=== PATIENT | male | born 1970 | race Caucasian/White ===

== ENCOUNTER 2016-11-29 21:26 | Emergency (ER) | payer MEDICARE ==
[~2016-11-29] VITALS: Ht 182.8 cm; Wt 88.5 kg
[~2016-11-29 21:26] MED LIST: ACULAR 3 ML3 M1 OP; AMOXICILLIN500 MG PO; ATARAX50 MG PO; BAYER ASPIRIN C81 MG PO; BENTYL10 MG PO; CHLORDIAZEPOXIDE5 M1 PO; CIPRO500 MG PO; DARVOCET N 1001 TAB PO; FISH OIL1000 MG PO; FLAGYL500 MG PO; FLEXERIL10 MG PO; FLEXERIL5 MG PO; FLOMAX0.4 MG PO; GOOD SENSE ALLE10 MG PO; IBU-8800 MG PO; KEFLEX500 MG PO; KENALOG0.1% TP; LIDEX0.05% T; LIPITOR40 MG PO; LISINOPRIL AND1 TAB PO; LISINOPRIL5 MG PO; MEDROL DOSEPAK4 MG PO; MELOXICAM7.5 MG PO; MOTRIN800 MG PO; Motrin,Rufen800 MG PO; NKHM; NORCO 5-325 TA1 EACH PO; OMEPRAZOLE40 MG PO; OXY IR5 MG PO; PERCOCET 325 MG1 TA2 PO; PREDNICOT20 MG PO; SEPTRA DS 800 M1 TAB PO; SIMVASTATIN10 MG PO; SINGULAIR10 MG PO; TESSALON PERLE100 M1 PO; THERA TABS1 TAB PO; TOBREX 5 ML5 ML OPH; TRAMADOL HCL50 MG PO; TRAZODONE HCL50 MG PO; ULTRAM50 MG PO; VICODIN 500 MG-1 TAB PO; ZITHROMAX Z-PA250 MG PO; ZOCOR10 MG PO; ZOFRAN4 MG PO
[2016-11-29] MEDS ORDERED: BACTRIM DS 8001 TA1 PO (21:41)
== END 2016-11-29 21:45 | disposition home or self-care (01) ==
LOC: ED 21:26
DX: L02.413 Cutaneous abscess of right upper limb (principal); Z88.6 Allergy status to analgesic agent; Z79.899 Other long term (current) drug therapy; Z79.82 Long term (current) use of aspirin

== ENCOUNTER 2017-11-15 20:46 | Emergency (ER) | payer MEDICARE ==
[~2017-11-15] VITALS: Ht 182.8 cm; Wt 90.7 kg
[~2017-11-15 20:46] MED LIST changes: +BACTRIM DS 8001 TA1 PO
[2017-11-15] MEDS ORDERED: Motrin,Rufen800 MG PO (20:54)
[2017-11-15] MEDS ORDERED: SEPTDS PO (20:54)
== END 2017-11-15 21:02 | disposition home or self-care (01) ==
LOC: ED 20:46
DX: L08.9 Local infection of the skin and subcutaneous tissue, unspecified (principal); Z79.899 Other long term (current) drug therapy; Z79.82 Long term (current) use of aspirin; Z86.14 Personal history of Methicillin resistant Staphylococcus aureus infection

== ENCOUNTER 2018-04-10 19:23 | Emergency (ER) | payer MEDICARE ==
[~2018-04-10] VITALS: Ht 182.8 cm; Wt 88.5 kg
[~2018-04-10 19:23] MED LIST changes: +SEPTDS PO
[2018-04-10 19:52] LABS: BASO % 0.7 % (0.0-1.0); EOS # 0.1 10*3/uL (0.0-0.4); EOS % 2.2 % (1.0-4.0); HEMATOCRIT 43.8 % (42.0-52.0); HEMOGLOBIN 15.5 g/dl (14.0-18.0); LYMPH # 1.7 10*3/uL (1.3-4.4); LYMPH % 32.5 % (27.0-41.0); MEAN CELL VOLUME 91.3 fl (80.0-94.0); MEAN CORPUSCULAR HGB 32.3 pg (27.0-31.0); MEAN CORPUSCULAR HGB CONC 35.4 g/dl (33.0-37.0); MEAN PLATELET VOLUME 9.7 fl (9.6-12.3); MONO # 0.5 10*3/uL (0.1-1.0); MONO % 8.8 % (3.0-9.0); NEUT % 55.6 % (47.0-73.0); PLATELET COUNT AUTOMATED 260 10*3/uL (130-400); RED CELL DISTRI WIDTH 12.1 % (0-14.5); WHITE BLOOD COUNT 5.4 10*3/uL (4.8-10.8)
[2018-04-10 19:56] LABS: BILIRUBIN NEGATIVE (NEGATIVE); BLOOD NEGATIVE (NEGATIVE); CLARITY CLEAR (CLEAR); COLOR YELLOW (YELLOW); GLUCOSE NEGATIVE (NEGATIVE); KETONE NEGATIVE (NEGATIVE); LEUKO ESTERASE NEGATIVE (NEGATIVE); NITRITE NEGATIVE (NEGATIVE); SPECIFIC GRAVITY <= 1.005 (1.005-1.030); UROBILINOGEN 0.2 E.U./dl (0.2-1.0)
[2018-04-10 20:05] LABS: BACTERIA TRACE; EPITHELIAL CELLS 0-2; RBC 0-2 rbc/hpf (0-2); WBC 0-2 wbc/hpf (0-5)
[2018-04-10 20:14] LABS: ALBUMIN 3.8 gm/dl (3.1-4.5); ALKALINE PHOSPHATASE 102 U/L (45-117); BUN 6 mg/dl (7-24); CHLORIDE 106 mmol/L (98-107); CREATININE 1.01 mg/dL (0.70-1.30); POTASSIUM 3.4 mmol/L (3.5-5.1); SGOT/AST 36 IU/L (3-35); SGPT/ALT 49 U/L (12-78); SODIUM 140 mmol/L (136-145); TOTAL PROTEIN 7.6 gm/dL (6.4-8.2)
[2018-04-10 20:16] LABS: LIPASE 177 U/L (73-393)
[2018-04-10] MEDS ORDERED: CYCLOBENZAPRINE10 MG PO (21:30)
[2018-04-10] MEDS ORDERED: IBU800 MG PO (21:30)
== END 2018-04-10 21:36 | disposition home or self-care (01) ==
LOC: ED 19:23
PROVIDERS: Student in an Organized Health Care Education/Training Program
DX: R10.31 Right lower quadrant pain (principal); R30.9 Painful micturition, unspecified; Z87.442 Personal history of urinary calculi; Z79.899 Other long term (current) drug therapy; Z79.82 Long term (current) use of aspirin

== ENCOUNTER 2018-10-06 22:15 | Emergency (ER) | payer MEDICARE ==
[~2018-10-06] VITALS: Ht 182.8 cm; Wt 95.3 kg
[~2018-10-06 22:15] MED LIST changes: +CYCLOBENZAPRINE10 MG PO; +IBU800 MG PO
[2018-10-06] MEDS ORDERED: ACULAR 0.5%3 ML OPH (23:48)
== END 2018-10-06 23:54 | disposition home or self-care (01) ==
LOC: ED 22:15
DX: H16.133 Photokeratitis, bilateral (principal); Z79.899 Other long term (current) drug therapy; Z79.82 Long term (current) use of aspirin; Z90.49 Acquired absence of other specified parts of digestive tract; Z87.442 Personal history of urinary calculi; W89.8XXA Exposure to other man-made visible and ultraviolet light, initial encounter; Y93.89 Activity, other specified; Y92.89 Other specified places as the place of occurrence of the external cause; Y99.8 Other external cause status

== ENCOUNTER 2019-06-08 18:09 | Emergency (ER) | payer MEDICARE ==
[~2019-06-08] VITALS: Wt 88.5 kg
[~2019-06-08 18:09] MED LIST changes: +ACULAR 0.5%3 ML OPH
[2019-06-08] MEDS ORDERED: Motrin,Rufen800 MG PO (20:03)
== END 2019-06-08 20:11 | disposition home or self-care (01) ==
LOC: ED 18:09
DX: S96.912A Strain of unspecified muscle and tendon at ankle and foot level, left foot, initial encounter (principal); G89.29 Other chronic pain; M79.605 Pain in left leg; Z87.442 Personal history of urinary calculi; Z79.899 Other long term (current) drug therapy; Z98.2 Presence of cerebrospinal fluid drainage device; Z90.49 Acquired absence of other specified parts of digestive tract; X50.1XXA Overexertion from prolonged static or awkward postures, initial encounter; Y93.89 Activity, other specified; Y92.69 Other specified industrial and construction area as the place of occurrence of the external cause; Y99.8 Other external cause status

== ENCOUNTER → 2020-01-18 | Outpatient (CLI) | payer MEDICARE ==
[2020-01-18 09:32] LABS: BASO % 0.2 % (0.0-1.0); EOS # 0.1 10*3/uL (0.0-0.4); EOS % 1.9 % (1.0-4.0); HEMATOCRIT 43.3 % (42.0-52.0); LYMPH # 0.9 10*3/uL (1.3-4.4); LYMPH % 22.1 % (27.0-41.0); MEAN CELL VOLUME 90.8 fl (80.0-94.0); MEAN CORPUSCULAR HGB 31.4 pg (27.0-31.0); MEAN CORPUSCULAR HGB CONC 34.6 g/dl (33.0-37.0); MEAN PLATELET VOLUME 9.4 fl (9.6-12.3); MONO # 0.4 10*3/uL (0.1-1.0); MONO % 9.2 % (3.0-9.0); NEUT # 2.7 10*3/uL (2.3-7.9); NEUT % 66.4 % (47.0-73.0); PLATELET COUNT AUTOMATED 204 10*3/uL (130-400); RED BLOOD COUNT 4.77 10*6/uL (4.50-5.90); RED CELL DISTRI WIDTH 12.6 % (0-14.5); WHITE BLOOD COUNT 4.1 10*3/uL (4.8-10.8)
[2020-01-18 09:53] LABS: ALBUMIN 3.7 gm/dl (3.1-4.5); ALKALINE PHOSPHATASE 108 U/L (45-117); BUN 7 mg/dl (7-24); CHLORIDE 107 mmol/L (98-107); CHOLESTEROL 185 mg/dL (<200); CREATININE 0.97 mg/dL (0.70-1.30); HDL CHOLESTEROL 56 mg/dl (40-60); LDL CHOLESTEROL 79 mg/dL (9-159); POTASSIUM 3.5 mmol/L (3.5-5.1); SGOT/AST 23 IU/L (3-35); SGPT/ALT 37 U/L (12-78); SODIUM 138 mmol/L (136-145); TOTAL PROTEIN 7.5 gm/dL (6.4-8.2); TRIGLYCERIDES 252 mg/dl (<150); VLDL CHOLESTEROL 50 mg/dL (6-40)
== END | disposition home or self-care (01) ==
LOC: LAB 09:10
PROVIDERS: Emergency Medicine
DX: I10 Essential (primary) hypertension (principal); E78.2 Mixed hyperlipidemia; R73.9 Hyperglycemia, unspecified

== ENCOUNTER 2021-01-08 09:26 | Emergency (ER) | payer MEDICARE ==
[~2021-01-08] VITALS: Wt 95.3 kg
== END 2021-01-08 11:49 | disposition home or self-care (01) ==
LOC: ED 09:26
DX: S89.92XA Unspecified injury of left lower leg, initial encounter (principal); Z79.899 Other long term (current) drug therapy; Z79.82 Long term (current) use of aspirin; Z90.49 Acquired absence of other specified parts of digestive tract; Z87.442 Personal history of urinary calculi; Z98.890 Other specified postprocedural states; X50.1XXA Overexertion from prolonged static or awkward postures, initial encounter; Y93.89 Activity, other specified; Y92.89 Other specified places as the place of occurrence of the external cause; Y99.8 Other external cause status

== ENCOUNTER 2021-12-12 02:52 | Emergency (ER) | payer MEDICARE ==
[2021-12-12] MEDS ORDERED: NAPROXEN250 MG PO (03:19)
== END 2021-12-12 03:55 | disposition home or self-care (01) ==
LOC: ED 02:52
DX: S93.402A Sprain of unspecified ligament of left ankle, initial encounter (principal); Z79.899 Other long term (current) drug therapy; Z90.49 Acquired absence of other specified parts of digestive tract; Z98.890 Other specified postprocedural states; W22.8XXA Striking against or struck by other objects, initial encounter; Y93.89 Activity, other specified; Y92.89 Other specified places as the place of occurrence of the external cause; Y99.8 Other external cause status